=== PATIENT | male | born 1965 | race Caucasian/White ===

== ENCOUNTER 2016-07-27 16:54 | Inpatient (IN) | payer OTHER ==
--- NOTE | ~2016-07-27 | US67 ---
[facility] A Service of [facility] RADIOLOGY TEXT RESULTS PATIENT: GEE RUSSELL LOCATION: [facility] : [birth year] UNIT #: [id number] AGE: [address]: Jerrod Sequeira MD SEX: M ORDER DR: [id number] [facility] [address] [place], [place] [address] [id number] MR#: [id number] Acc #: [id number] NAME: GEE RUSSELL. : 1965 SEX: M STUDY DATE/TIME: 07/28/2016 8:12 UNIT: A PCU ROOM: [facility] STUDY DESCRIPTION: US Gallbladder Attending Physician: Jerrod Sequeira M.D. Ordering Physician: Sneha Quan M.D. Primary Care Physician: Yayo Agudelo M.D. MEDICAL IMAGING REPORT This report is preliminary unless electronic signature is present EXAM Right upper quadrant abdominal ultrasound INDICATIONS Intermittent generalized abdominal pain for the past 5 months, worsening over the past 5 days. PROCEDURE Lieberman-scale and Doppler imaging right upper quadrant of the abdomen. COMPARISON CT from 07/27/2016 FINDINGS Pancreas completed obscured by bowel gas. The liver shows diffusely increased echotexture. Liver measures 19.5 cm. Right kidney measures 11.2 cm. Unremarkable gallbladder. Common duct measures 4 mm. IMPRESSION Borderline hepatomegaly. Diffuse hepatic steatosis. Pancreas obscured by bowel gas and not well seen on this study. Refer to the recent CT. Dictated by... Juan Mcginnis M.D. THIS IS AN ELECTRONICALLY VERIFIED REPORT Juan Mcginnis M.D. at 07/29/2016 7:05 AM EED/to TD: 07/28/2016 11:48 JOB #: [id number] [facility] A Service [facility] RADIOLOGY TEXT RESULTS PATIENT: GEE RUSSELL LOCATION: [facility] - : 69 UNIT #: [id number] AGE: [address]: Jerrod Sequeira MD SEX: M ORDER DR: MEDICAL IMAGING REPORT Page 1 of 1 COPY
--- NOTE | ~2016-07-27 | CT2 ---
[facility] A Service of [facility] & [facility] RADIOLOGY TEXT RESULTS PATIENT: GEE RUSSELL LOCATION: [facility]3A 342-01 : 69 UNIT #: [id number] AGE: [address]: Staci Lopes MD SEX: M ORDER DR: [id number] [place] [id number] I MR#: [id number] Acc #: [id number] NAME: GEE RUSSELL. : 1965 SEX: M STUDY DATE/TIME: 07/27/2016 18:09 UNIT: SEDOF ROOM: [facility] STUDY DESCRIPTION: CT Abd and Pelv W Cont Attending Physician: Staci Lopes M.D. Ordering Physician: Physician Non-Staff Primary Care Physician: Yayo Agudelo M.D. MEDICAL IMAGING REPORT This report is preliminary unless electronic signature is present. EXAM CT abdomen and pelvis with contrast. HISTORY Mid abdominal pain with nausea and vomiting x4 days. This CT exam was performed with one or more of the following radiation dose reduction techniques: automatic exposure control, adjustment of mA and/or kV according to patient size, and iterative reconstruction. . FINDINGS Axial images performed through the abdomen and pelvis following IV contrast. Multiplanar reconstructed images reviewed at a workstation. Abdomen: Lung bases remarkable for small amount of left basilar atelectasis. No effusions. The liver demonstrates diffuse fatty infiltration. The gallbladder and spleen appear normal. There is peripancreatic inflammatory changes predominately about the body of the pancreas with extension of inflammatory changes into the lesser sac and also along the left anterior pararenal space extending all the way to the pelvic inlet. Findings most compatible with acute pancreatitis with extensive inflammation within the anterior pararenal space. Correlate with laboratory data. Kidneys and adrenal glands unremarkable. Stomach, small bowel, colon and appendix unremarkable. Retroperitoneum unremarkable. Pelvis: Bladder decompressed. Osseous structures and soft tissues appear normal. Patient does demonstrate bilateral gynecomastia which could indicate the stigmata of early liver disease. IMPRESSION 1. Peripancreatic inflammatory changes predominately about the body of the pancreas with extensive inflammatory changes [facility] & [facility] RADIOLOGY TEXT RESULTS PATIENT: GEE RUSSELL LOCATION: [facility] 342-01 : [birth year] UNIT #: [id number] AGE: [address]: Staci Lopes MD SEX: M ORDER DR: lesser sac and also along the left anterior pararenal space. Findings most concerning for acute pancreatitis. Correlate with laboratory data. Other inflammatory process considered less likely to account for these findings. 2. Diffuse hepatic steatosis. 3. Bilateral gynecomastia. 1. Dictated by... Jeni Grove M.D. THIS IS AN ELECTRONICALLY VERIFIED REPORT Jeni Grove M.D. at 07/28/2016 7:29 AM David TD: 07/28/2016 06:54 JOB #: [id number] MEDICAL IMAGING REPORT Page 1 of 1
--- NOTE | ~2016-07-27 | HP ---
Unit #: [id number] #: [id number] Patient: GEE RUSSELL [id number] [address] [address] [id number] I MR#: [id number] NAME: GEE RUSSELL. ROOM: 342 Age: 51 Sex: M Admission Date: 07/27/2016 : 1965 Attending Physician: Staci Lopes M.D. Primary Care Physician: Yayo Agudelo M.D. HISTORY AND PHYSICAL CHIEF COMPLAINT Acute pancreatitis. HISTORY OF PRESENT ILLNESS This 51-year-old male with DJD and chronic back pain, hypertension, anxiety, was transferred from [facility] emergency department for acute pancreatitis. The patient drinks alcohol heavily most days but his last drink was four days ago. He states that four days ago he developed generalized abdominal pain worse in the epigastric region, radiating to his back associated with nausea and decreased p.o. intake. Experienced postprandial pain which worsened and finally presented to [facility] emergency department today. Labs are notable for hypokalemia and elevated lipase. A CT scan performed was consistent with acute pancreatitis along with diffuse hepatic steatosis. The patient was treated with a liter of saline, given Zofran, 40 mEq of potassium, and morphine. Denies previous history of pancreatitis. PAST MEDICAL HISTORY 1. DJD of the spine for which the patient states that he takes routine oxycodone. 2. Hypertension. 3. Anxiety for which the patient states that he takes routine Valium. 4. Eye surgery. 5. Reportedly negative EGD and colonoscopy recently. 6. Umbilical hernia repair March 2016. ALLERGIES None. HOME MEDICATIONS 1. Unknown blood pressure medicine. 2. Oxycodone 10 mg up to 5 times daily. 3. Valium 10 mg once or twice daily. SOCIAL HISTORY The patient lives with his son. He was smoking up to 2 packs per day but cut down to one-half pack per day of tobacco. Drinks alcohol heavily but not for the past four days. He states that he does not drink on a daily basis. Denies illicit drug use. FAMILY HISTORY Negative for gallbladder or pancreatic disease. Unit #: [id number] #: [id number] Patient: GEE RUSSELL REVIEW OF SYSTEMS Notable for abdominal pain, nausea, DJD of the spine, hypertension, anxiety, alcohol and tobacco abuse, above-mentioned surgeries. All other systems were reviewed and are negative. PHYSICAL EXAMINATION VITAL SIGNS: Temperature 99.1, pulse 113, respirations 16, blood pressure 140/90, O2 saturation 98% on room air. GENERAL: Uncomfortable appearing, moderately obese 51-year-old male. HEENT: Eyes PERRLA. Extraocular muscles are intact. Pharynx benign. NECK: Supple without adenopathy or thyromegaly. CHEST: Clear. HEART: Normal S1, S2 without S3, S4 or murmur. ABDOMEN: Bowel sounds are present. Well-healed scar around the umbilicus. The patient has generalized abdominal tenderness which is more localized in the epigastric region with mild guarding but no rebound. No definite hepatosplenomegaly or masses. EXTREMITIES: Without clubbing, cyanosis, or edema. Pedal pulses are present. NEUROLOGIC: Awake, alert, oriented. Cranial nerves are intact. Equal strength throughout. DIAGNOSTIC STUDIES LABORATORY: Hematocrit 44.5, white blood cell count 12.6, MCV 103, normal platelet count. SMA-12 potassium 2.7, AST 82, ALT 50, alkaline phosphatase 228, lipase 135. Urinalysis positive urobilinogen, 1+ protein, mild glucose, 1+ bacteria. IMAGING: CT scan shows acute pancreatitis. Diffuse hepatic steatosis. Bilateral gynecomastia. ASSESSMENT 1. Acute pancreatitis likely related to alcohol abuse. No alcohol for the past four days. 2. Hypertension on an unknown antihypertensive medication. 3. Hypokalemia. 4. Chronic back pain on oxycodone. 5. Anxiety on Valium. 6. Tobacco use. PLAN 1. Aggressive IV fluids and supportive treatment. 2. H2 blockers. 3. DVT prophylaxis. 4. Replace potassium. 5. Check magnesium. 6. Will obtain a gallbladder ultrasound in the morning and repeat all labs in the morning. 7. Obtain CASE report. 8. Ativan per CIWA protocol and vitamins. 9. Verify home medicines. Unit #: [id number] #: [id number] Patient: GEE RUSSELL Dictated by Vinayak Keen/jessy TD: 07/27/2016 23:16 JOB #: [id number] HISTORY AND PHYSICAL Page 1 of 1 X Sneha Quan MD HISTORY AND PHYSICAL
[~2016-07-27 16:54] MED LIST: FLEXERIL10 MG PO; FOLIC ACID; KETOPROFEN PO; MEDROL PO; NAPROSYN500 MG PO; OXYCONTIN10 MG PO; VALIUM10 M1; VICODIN 5/500 T1 TAB PO
[2016-07-27 17:10] LABS: BASOPHIL# 0.1 X10e3 (0-0.3); BASOPHIL% 0.6 % (0-2.5); EOSINOPHIL# 0.1 X10e3 (0-0.7); HEMATOCRIT 44.5 % (38.0-50.0); HEMOGLOBIN 15.1 gm/dL (13.0-16.0); LYMPHOCYTE# 1.1 X10e3 (1.0-3.5); LYMPHOCYTE% 9.1 % (17.0-45.0); MEAN CELL VOLUME 103.1 FL (83-96); MEAN CORPUSCULAR HEMOGLOBIN 34.9 PG (28-34); MEAN CORPUSCULAR HGB CONC 33.8 g/dL (30-36); MEAN PLATELET VOLUME 8.4 FL (6.5-11.5); MONOCYTE# 0.6 X10e3 (0-1.0); MONOCYTE% 4.7 % (3.0-12.0); NEUTROPHIL# 10.7 X10e3 (1.5-7.1); NEUTROPHIL% 84.6 % (40-75); PLATELET COUNT 259 X10e3 (140-420); RED BLOOD COUNT 4.32 X10e (3.90-5.60); RED CELL DISTRIBUTION WIDTH 15.7 % (11.0-15.5); WHITE BLOOD COUNT 12.6 X10e3 (4.0-10.5)
[2016-07-27 17:21] LABS: DIFF IND NO
[2016-07-27 17:43] LABS: URINE SOURCE CLEAN CATCH
[2016-07-27 17:53] LABS: BILIRUBIN, DIRECT 0.3 mg/dL (0.0-0.2); BILIRUBIN,INDIRECT 0.4 mg/dL (0.0-0.9); BILIRUBIN,TOTAL 0.7 mg/dL (0.2-2.0); BUN/CREATININE RATIO 11.11; CALCIUM SERUM 9.2 mg/dL (8.4-10.2); CREATININE SERUM 0.9 mg/dL (0.6-1.4); GLOM FILT RATE Estimated 99.9 mL/min (>60); PROTEIN TOTAL SERUM 7.3 g/dL (6.0-8.3)
[2016-07-27 17:56] LABS: POTASSIUM 2.7 mmol/L (3.5-5.1)
[2016-07-27 18:09] LABS: URINE APPEARANCE CLEAR; URINE BLOOD NEG (NEG); URINE COLOR AMBER; URINE KETONE TRACE (NEG); URINE LEUKOCYTE ESTERASE NEG (NEG); URINE NITRATE NEG (NEG); URINE PH 5.5 (5-8); URINE PROTEIN 1+ (NEG); URINE UROBILINOGEN >=8.0 MG/DL (NORM)
[2016-07-27 18:12] LABS: URINE BILIRUBIN NEG (NEG); URINE GLUCOSE 50 MG/DL (NORM)
[2016-07-27 18:13] LABS: MICRO INDICATED? YES
[2016-07-27 18:19] LABS: CULTURE INDICATED? YES; URINE BACTERIA 1+ (NEG); URINE MUCUS PRESENT; URINE RBC 0-2 /[HPF] (0-2); URINE SQUAMOUS EPITHELIAL CELL FEW /[HPF]; URINE TRANSITIONAL EPI CELLS FEW /[HPF]
[2016-07-28 07:44] LABS: HEMATOCRIT 39.8 % (38.0-50.0); MEAN CELL VOLUME 103.6 FL (83-96); MEAN CORPUSCULAR HEMOGLOBIN 34.1 PG (28-34); MEAN CORPUSCULAR HGB CONC 32.9 g/dL (30-36); MEAN PLATELET VOLUME 8.6 FL (6.5-11.5); RED BLOOD COUNT 3.84 X10e (3.90-5.60); RED CELL DISTRIBUTION WIDTH 15.6 % (11.0-15.5)
[2016-07-28 07:47] LABS: HEMOGLOBIN 13.1 gm/dL (13.0-16.0)
[2016-07-28 07:59] LABS: PARTIAL THROMBOPLASTIN TIME 28.2 SECONDS (23.5-31.3); PROTHROMBIN TIME (PATIENT) 10.7 SECONDS (9.6-11.5)
[2016-07-28 08:23] LABS: ALBUMIN SERUM 2.3 g/dL (3.5-5.0); BILIRUBIN,TOTAL 0.8 mg/dL (0.2-2.0); BUN/CREATININE RATIO 8.57; CALCIUM SERUM 8.4 mg/dL (8.4-10.2); CREATININE SERUM 0.7 mg/dL (0.6-1.4); GLOM FILT RATE Estimated 110.9 mL/min (>60); MAGNESIUM 1.6 mg/dL (1.6-3.0); POTASSIUM 3.4 mmol/L (3.5-5.1); PROTEIN TOTAL SERUM 5.6 g/dL (6.0-8.3)
== END 2016-07-28 18:10 | disposition left against medical advice (07) | DRG 440 ==
LOC: SED 16:54 → C3A PCU 23:00
PROVIDERS: Internal Medicine; Physician Assistant
DX: K85.20 Alcohol induced acute pancreatitis without necrosis or infection (principal); I10 Essential (primary) hypertension; M54.9 Dorsalgia, unspecified; E87.6 Hypokalemia; F41.9 Anxiety disorder, unspecified; F17.210 Nicotine dependence, cigarettes, uncomplicated; F10.10 Alcohol abuse, uncomplicated; M47.9 Spondylosis, unspecified
CPT/HCPCS: 36415; 74177; 76705; 80048; 80053; 80076; 81003; 82150; 83690; 83735; 85025; 85027; 85610; 85730; 87086; 96361; 96374; 99285; J1650; J2270; J2405; J3411; Q9967